=== PATIENT | female | born 1990 ===

== ENCOUNTER 2017-01-28 15:32 | Emergency (ER) | payer OTHER ==
[2017-01-28] MEDS ORDERED: DiphenhydrAMINE 50 mg/ml Inj IVP STA (15:57)
--- NOTE | 2017-01-28 15:57 | ED PDOC ---
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 She reports she felt dizzy and tried to sit down prior to the episode. After the episode patient reports generalized headache. Patient vomited on arrival. Patient still complaining of headache and nausea. Denies chest pain, shortness of breath, or other symptoms. Time/Duration: Prior to Arrival Symptom Onset: Sudden Modifying Factors (Text): None Context: Work Past Medical History - Provider Review Nursing Documentation Reviewed: Yes - Infectious Disease Hx of Infectious Diseases: None - Reproductive Menopause: No - Psychiatric Hx Substance Use: No Family/Social History - Physician Review Nursing Documentation Reviewed: Yes Family/Social History: Unknown Family HX Smoking Status: Unknown If Ever Smoked Hx Alcohol Use: No Hx Substance Use: No Allergies/Home Meds Allergies/Adverse Reactions: Allergies No Known Allergies Allergy (Verified 01/28/17 15:48) Home Medications: Home Meds Medication Instructions Recorded Confirmed No Known Home Med 01/28/17 01/28/17 Review of Systems - Physician Review All systems were reviewed & negative as marked: Yes - Review of Systems Respiratory: absent: SOB Cardiovascular: Syncope. absent: Chest Pain Neurological: Headache, Dizziness (resolved) Physical Exam Vital Signs Reviewed: Yes Vital Signs Temp Pulse Resp BP Pulse Ox 01/28/17 20:00 98.4 F 97 H 113 H 112/53 L 97 01/28/17 19:45 111 H 17 114/56 L 98 01/28/17 19:35 111 H 17 107/54 L 98 01/28/17 19:15 108 H 16 109/57 L 98 01/28/17 19:01 96 H 17 117/65 98 01/28/17 17:52 81 16 141/79 99 01/28/17 15:41 98.5 F 77 16 128/76 99 Temperature: Afebrile Blood Pressure: Normal Pulse: Regular Respiratory Rate: Normal Appearance: Positive for: Well-Appearing, Non-Toxic, Comfortable Pain Distress: None Mental Status: Positive for: Alert and Oriented X 3 - Systems Exam Head: Present: Atraumatic, Normocephalic Pupils: Present: PERRL Conjunctiva: Present: Normal Mouth: Present: Moist Mucous Membranes Neck: Present: Normal Range of Motion Respiratory/Chest: Present: Clear to Auscultation, Good Air Exchange. No: Respiratory Distress, Accessory Muscle Use Cardiovascular: Present: Regular Rate and Rhythm. No: Murmurs Abdomen: Present: Normal Bowel Sounds. No: Tenderness, Distention, Peritoneal Signs Back: Present: Normal Inspection Upper Extremity: Present: Normal Inspection, Normal ROM, NORMAL PULSES. No: Cyanosis, Edema Lower Extremity: Present: Normal Inspection. No: Edema Neurological: Present: GCS=15, CN II-XII Intact, Speech Normal, Motor Func Grossly Intact, Normal Sensory Function, Normal Cerebellar Funct, Norm Deep Tendon Reflexes Skin: Present: Warm, Dry, Normal Color. No: Rashes Psychiatric: Present: Alert, Oriented x 3 Medical Decision Making ED Course and Treatment: Patient may go to CT without test. PROCEDURE: CT scan brain 01/28/2017 Railroad Auditor : Ha Brannon MD FINDINGS: HEMORRHAGE: Current study reveals a small amount of subarachnoid hemorrhage within the suprasellar cistern extending more so to the left and right into the lateral fissure and sylvian fissure. There is also small amount of subarachnoid hemorrhage seen extending along the A2 segments within the anterior aspect of the interhemispheric fissure. In addition, there is a small amount of subarachnoid hemorrhage in the ambient cisterns left greater than right. The appearance of the subarachnoid hemorrhage is most consistent with that of the ruptured aneurysm possibly in the left posterior communicating artery and or terminal and of the supraclinoid carotid artery (at the bifurcation of the left M1 and A1 segments. Note is also made of a small approximately 2.4 mm hyperdense focus located at the junction of the foramina Monro/3rd ventricle. This could conceivably represent an incidental colloid cyst however the possibility of a small amount of hemorrhage within the ventricular system less likely due the absence of a subarachnoid hemorrhage within the remaining the ventricular system. BRAIN: Mild diffuse cerebral edema with dilatation of the temporal horns suggesting early possibly communicating hydrocephalus. Clinic correlation recommended. . VENTRICLES: As above. IMPRESSION: Findings consistent with subarachnoid hemorrhage. Underlying ruptured aneurysm (presumptively located in the left posterior communicating and/or terminal end of the left carotid bifurcation regions) must be ruled out. Formal four-vessel catheter angiogram recommended. MRA and MRI of the brain could also be performed. Mild diffuse cerebral edema with early obstructive type hydrocephalus (communicating type) Questionable small amount of intraventricular hemorrhage versus possible colloid cyst 01/28/17 17:45 Called by rads- pt has SAH. GERMÁN pagecarlitos right away. 01/28/17 17:[address] Douglass- pt should be transferred. Paged [facility]. 01/28/17 18:17 Case discussed with with Dr. Denson, neurosurgeon at [facility], who accepts transfer. rec IVF ns 20K @120ml/hr and cardene to keep SBP <120. 01/28/17 19:00 repeat neuro exam no deficits. pt still c/o severe headache, more morphine just given. EKG shows sinus tachycardia at 112 BPM with incomplete right bundle branch block , nonspecific T wave changes. 01/28/17 20:26 Patient remains neurologically intact. Patient transferred to [facility]. - Lab Interpretations Lab Results: 01/28/17 16:50 01/28/17 16:50 Lab Results 01/28/17 16:50: WBC 7.3, RBC 3.84, Hgb 10.9 L, Hct 32.8 L, MCV 85.4, MCH 28.4, MCHC 33.2, RDW 14.4, Plt Count 199, MPV 11.1 H, Gran % 69.4 H, Lymph % (Auto) 23.4, [place] % (Auto) 6.4 H, Eos % (Auto) 0.7 L, Baso % (Auto) 0.1, Gran # 5.09, Lymph # 1.7, [place] # 0.5, Eos # 0.1, Baso # 0.01, PT 10.5, INR 0.97, APTT 24.9, Sodium 140, Potassium 3.2 L, Chloride 105, Carbon Dioxide 24, Anion Gap 14, BUN 11, Creatinine 0.5, Est GFR ( Amer) > 60, Est GFR (Non-Af Amer) > 60, Random Glucose 109, Calcium 9.1, Total Bilirubin 0.5, AST 28, ALT 32, Alkaline Phosphatase 68, Total Protein 7.7, Albumin 4.2, Globulin 3.5, Albumin/Globulin Ratio 1.2 - RAD Interpretation Radiology Orders: 04/14/17 15:49 HEAD W/O CONTRAST [CT] Stat - EKG Interpretation Interpreted by ED Physician: Yes Type: 12 lead EKG - Medication Orders Current Medication Orders: Discontinued Medications Diphenhydramine HCl (Benadryl) 25 mg IVP STAT STA Stop: 01/28/17 15:58 Last Admin: 01/28/17 16:45 Dose: 25 MG IVP Administration Document 01/28/17 16:45 [facility] (Rec: 01/28/17 16:56 [place] [id number]) Charges for Administration # of IVP Administrations 1 Potassium Chloride 20 meq/ (Sodium Chloride) 1,010 mls @ 120 mls/hr IV .Q8H25M JOHNNY Last Admin: 01/28/17 20:16 Dose: 120 MLS/HR eMAR Start Stop Document 01/28/17 20:16 [facility] (Rec: 01/28/17 20:16 [place] [id number]) Intravenous Solution Start Date 01/28/17 Start Time 19:00 Nicardipine HCl (Cardene Iv Premix) 200 mls @ 50 mls/hr IV .Q4H PRN; Protocol; 5 MG/HR PRN Reason: TITRATE PER MD ORDER Last Admin: 01/28/17 18:41 Dose: 50 MLS/HR Titration Intervention Document 01/28/17 18:41 [facility] (Rec: 01/28/17 18:42 [place] [id number]) Titration Intake Container Volume 200 Titration Dosing Titration Dose 5 IV Rate 50 Intake/Decrease Start eMAR Start Stop Document 01/28/17 18:41 [facility] (Rec: 01/28/17 18:42 [place] [id number]) Intravenous Solution Start Date 01/28/17 Start Time 18:35 Metoclopramide HCl (Reglan) 10 mg IVP STAT STA Stop: 01/28/17 15:58 Last Admin: 01/28/17 16:45 Dose: 10 MG IVP Administration Document 01/28/17 16:45 [facility] (Rec: 01/28/17 16:56 [place] [id number]) Charges for Administration # of IVP Administrations 1 Morphine Sulfate (Morphine) 2 mg IVP STAT STA Stop: 01/28/17 17:50 Last Admin: 01/28/17 17:59 Dose: 2 MG MAR Pain Assessment Document 01/28/17 17:59 [facility] (Rec: 01/28/17 18:00 [place] [id number]) Pain Reassessment Is this a pain reassessment? Yes Presence of Pain Presence of Pain Yes Pain Scale Used Pain Scale Used Numeric Description Description Pressure Intensity of Pain at present 7 Pain Behavior Moaning IVP Administration Document 01/28/17 17:59 [facility] (Rec: 01/28/17 18:00 [place] [id number]) Charges for Administration # of IVP Administrations 1 Morphine Sulfate (Morphine) Confirm Administered Dose 2 mg .ROUTE .STK-MED ONE Stop: 01/28/17 17:57 Last Admin: 01/28/17 18:01 Dose: Morphine Sulfate (Morphine) 2 mg IVP STAT STA Stop: 01/28/17 18:27 Last Admin: 01/28/17 18:45 Dose: 2 MG MAR Pain Assessment Document 01/28/17 18:45 [facility] (Rec: 01/28/17 19:18 [place] [id number]) Pain Reassessment Is this a pain reassessment? Yes Sleep Is patient sleeping during reassessment? No Presence of Pain Presence of Pain Yes Pain Scale Used Pain Scale Used Numeric Location Pain Location Body Access Coordinator IVP Administration Document 01/28/17 18:45 [facility] (Rec: 01/28/17 19:18 [place] [id number]) Charges for Administration # of IVP Administrations 1 Ondansetron HCl (Zofran Inj) 4 mg IVP ONCE ONE Stop: 01/28/17 17:55 Last Admin: 01/28/17 18:01 Dose: 4 MG IVP Administration Document 01/28/17 18:01 [facility] (Rec: 01/28/17 18:01 [place] [id number]) Charges for Administration # of IVP Administrations 1 Ondansetron HCl (Zofran Inj) Confirm Administered Dose 4 mg .ROUTE .STK-MED ONE Stop: 01/28/17 17:57 Last Admin: 01/28/17 18:02 Dose: NIHSS Scale ([place]) Time Performed: 15:35 - How Severe is the Stoke Baseline Level of Consciousness: 0=Alert LOC to Questions: 0=Both comments correct LOC to commands: 0=Obeys both correctly Best Gaze: 0=Normal Visual: 0=No visual loss Facial: 0=Normal Motor Arm - Left: 0=No drift Motor Arm - Right: 0=No drift Motor Leg - Left: 0=No drift Motor Leg - Right: 0=No drift Limb Ataxia: 0=Absent Sensory: 0=Normal Best Language: 0=No aphasia Dysarthia: 0=Normal articulation Extinction & Inattention (Neglect): 0=Normal, no object Score: 0 Risk Level: No Stroke Risk - Scribe Statement The provider has reviewed the documentation as recorded by the Cricket Elizondo Provider Scribe Attestation: All medical record entries made by the Cricket were at my direction and personally dictated by me. I have reviewed the chart and agree that the record accurately reflects my personal performance of the history, physical exam, medical decision making, and the department course for this patient. I have also personally directed, reviewed, and agree with the discharge instructions and disposition. Disposition/Present on Arrival - Present on Arrival Any Indicators Present on Arrival: No History of DVT/PE: No History of Uncontrolled Diabetes: No Urinary Catheter: No History of Decub. Ulcer: No History Surgical Site Infection Following: None - Disposition Have Diagnosis and Disposition been Completed?: Yes Diagnosis: Subarachnoid hemorrhage Disposition: Transfer Overlook Disposition Time: 18:33 Condition: GUARDED Referrals: PCP,NO [Primary Care Provider] - Follow up with primary
[2017-01-28] MEDS ORDERED: Morphine 2 mg/ml ISec IVP STA ×2 (17:49→18:26)
--- NOTE | 2017-01-28 17:49 | CT ---
PROCEDURE: CT scan brain 01/28/2017 HISTORY: headache vomiting syncope COMPARISON: None available. TECHNIQUE: Axial computed tomography images were obtained through the head/brain without intravenous contrast. Radiation dose: Total exam DLP = 808.31 mGy-cm. This CT exam was performed using one or more of the following dose reduction techniques: Automated exposure control, adjustment of the mA and/or kV according to patient size, and/or use of iterative reconstruction technique. FINDINGS: HEMORRHAGE: Current study reveals a small amount of subarachnoid hemorrhage within the suprasellar cistern extending more so to the left and right into the lateral fissure and sylvian fissure. There is also small amount of subarachnoid hemorrhage seen extending along the A2 segments within the anterior aspect of the interhemispheric fissure. In addition, there is a small amount of subarachnoid hemorrhage in the ambient cisterns left greater than right. The appearance of the subarachnoid hemorrhage is most consistent with that of the ruptured aneurysm possibly in the left posterior communicating artery and or terminal and of the supraclinoid carotid artery (at the bifurcation of the left M1 and A1 segments. Note is also made of a small approximately 2.4 mm hyperdense focus located at the junction of the foramina Monro/3rd ventricle. This could conceivably represent an incidental colloid cyst however the possibility of a small amount of hemorrhage within the ventricular system less likely due the absence of a subarachnoid hemorrhage within the remaining the ventricular system. BRAIN: Mild diffuse cerebral edema with dilatation of the temporal horns suggesting early possibly communicating hydrocephalus. Clinic correlation recommended. . VENTRICLES: As above. CALVARIUM: No acute calvarial fractures. PARANASAL SINUSES: Unremarkable as visualized. . Minimal mucosal thickening seen within the right maxillary antrum MASTOID AIR CELLS: Unremarkable as visualized. No inflammatory changes. OTHER FINDINGS: None. IMPRESSION: Findings consistent with subarachnoid hemorrhage. Underlying ruptured aneurysm (presumptively located in the left posterior communicating and/or terminal end of the left carotid bifurcation regions) must be ruled out. Formal four-vessel catheter angiogram recommended. MRA and MRI of the brain could also be performed. Mild diffuse cerebral edema with early obstructive type hydrocephalus (communicating type) Note these findings were discussed with Dr. Best at approximately 5:45 p.m. with written down and read back verification. Questionable small amount of intraventricular hemorrhage versus possible colloid cyst
[2017-01-28] MEDS ORDERED: Morphine 2 mg/ml ISec ONE (17:56)
[2017-01-28] MEDS ORDERED: levETIRAcetam 1,000 MG in Sodium Chloride 0.9% 100 ML IV ONE (18:09)
[2017-01-28] MEDS ORDERED: Nicardipine 20 MG/200 ML 200 ML IV PRN (18:19)
[2017-01-28 18:24] LABS: ADD MANUAL DIFF? NO
[2017-01-28 18:32] LABS: BASO # 0.01 K/mm3 (0.0-2.0); BASO % 0.1 % (0.0-3.0); EOS # 0.1 (0.0-0.7); EOS % 0.7 % (1.5-5.0); GRAN # 5.09 (1.4-6.5); GRAN % 69.4 % (50.0-68.0); HEMATOCRIT 32.8 % (36.0-48.0); LYMPH # 1.7 (1.2-3.4); LYMPH % 23.4 % (22.0-35.0); MEAN CELL VOLUME 85.4 fL (80.0-105.0); MEAN CORPUSCULAR HEMOGLOBIN 28.4 pg (25.0-35.0); MEAN CORPUSCULAR HGB CONC 33.2 g/dl (31.0-37.0); MEAN PLATELET VOLUME 11.1 fl (7.0-11.0); MONO # 0.5 (0.1-0.6); MONO % 6.4 % (1.0-6.0); PLATELET COUNT 199 10^3/uL (120.0-450.0); RED CELL DISTRIBUTION WIDTH 14.4 % (11.5-14.5); WHITE BLOOD COUNT 7.3 10^3/ul (4.5-11.0)
[2017-01-28 18:39] LABS: ALB/GLOB RATIO 1.2 (1.1-1.8); ALKALINE PHOSPHATASE 68 U/L (38-133); ALT/SGPT 32 U/L (7-56); AST/SGOT 28 U/L (15-39); BILIRUBIN,TOTAL 0.5 mg/dL (0.2-1.3); BLOOD UREA NITROGEN 11 mg/dL (7-21); CALCIUM 9.1 mg/dL (8.4-10.5); CARBON DIOXIDE 24 mmol/L (21-33); CHLORIDE 105 mmol/L (98-107); GFR AFRICAN-AMERICAN > 60; GLUCOSE,RANDOM 109 mg/dL (70-110); POTASSIUM 3.2 mmol/L (3.6-5.0); SODIUM 140 mmol/L (132-148); TOTAL PROTEIN 7.7 g/dL (5.8-8.3)
[2017-01-28 18:40] LABS: INR 0.97 (0.93-1.08); PARTIAL THROMBOPLASTIN TIME 24.9 Seconds (23.7-30.8)
[2017-01-28 20:13] VITALS: BP 112/53; PULSE 97; RESP 113; TEMP 98.4; O2SAT 97
--- NOTE | 2017-01-29 11:30 | CARD ---
APPROVED REPORT EKG Measurement Heart [id number] MO [id number] [id number] <Conclusion> Sinus tachycardia Possible Left atrial enlargement Incomplete right bundle branch block Nonspecific T wave abnormality Prolonged QTc.
== END 2017-01-28 20:19 | disposition short-term general hospital (02) ==
LOC: ED 15:32
DX: I60.9 Nontraumatic subarachnoid hemorrhage, unspecified (principal)
CPT/HCPCS: 70450; 80053; 85025; 85610; 85730; 93005; 96374; 96375; 96376; 99285; J1200; J2270; J2405; J2765; J7040